=== PATIENT | female | born 1950 | race Two or more races ===

== ENCOUNTER → 2020-10-28 | Outpatient (CLI) | payer MEDICARE, BC ==
--- NOTE | 2020-10-30 21:55 | US ---
EXAMINATION TYPE: US kidneys/renal and bladder DATE OF EXAM: 10/28/2020 COMPARISON: NONE CLINICAL HISTORY: 70-year-old female N18.32 stage 3 kidney disease. Abnormal labs TECHNIQUE: Multiple sonographic images of the kidneys and bladder are obtained. FINDINGS: EXAM MEASUREMENTS: Right Kidney: 9.4 x 4.2 x 4.5 cm Left Kidney: 10.8 x 4.4 x 4.0 cm No hydronephrosis on either side. Right Kidney: wnl, lower pole gassed out and secondarily limited Left Kidney: Central midpole cyst measuring 1.4 x 1.0 x 1.1 cm Bladder: wnl Bilateral Jets seen: Yes IMPRESSION: No hydronephrosis.
== END | disposition home or self-care (01) ==
LOC: RADUSWWP 16:18
PROVIDERS: ATTEND Family Medicine
DX: N18.32 Chronic kidney disease, stage 3b (principal); N28.1 Cyst of kidney, acquired
CPT/HCPCS: 76770